=== PATIENT | male | born 1985 | race African-American/Black ===

== ENCOUNTER 2021-07-01 13:24 | Emergency (ER) | payer MEDICAID ==
[~2021-07-01] VITALS: Ht 188 cm; Wt 98.0 kg
[2021-07-01] MEDS ORDERED: ACETAMINOPHEN 325MG TABLET PO NR (16:30)
[2021-07-01 17:06] VITALS: BP 132/94
== END 2021-07-01 19:15 | disposition home or self-care (01) ==
LOC: ER 13:24
DX: S92.901D Unspecified fracture of right foot, subsequent encounter for fracture with routine healing (principal); R03.0 Elevated blood-pressure reading, without diagnosis of hypertension; Z47.89 Encounter for other orthopedic aftercare; X58.XXXD Exposure to other specified factors, subsequent encounter
CPT/HCPCS: 73610; 73630; 99284; Z7610